=== PATIENT | male | born 1980 | race African-American/Black ===

== ENCOUNTER 2021-07-04 08:00 | Outpatient (CLI) | payer OTHER ==
[~2021-07-04 08:00] MED LIST: TOPROL XL25 MG
== END 2021-07-04 08:30 | disposition home or self-care (01) ==
LOC: PPH VACUNA 08:00
PROVIDERS: ATTEND Emergency Medicine Pediatric Emergency Medicine
DX: Z23 Encounter for immunization (principal)

== ENCOUNTER 2022-05-02 11:11 | Emergency (ER) | payer OTHER ==
[~2022-05-02] VITALS: Ht 170.2 cm; Wt 130.2 kg
[2022-05-02] MEDS ORDERED: METFORMIN HCL500 M4 PO (11:43)
[2022-05-02] MEDS ORDERED: XARELTO15 M1 PO (11:43)
[2022-05-02] MEDS ORDERED: SYNTHROID50 MCG PO (11:44)
[2022-05-02] MEDS ORDERED: HYDROXYCHLOROQ200 MG PO (11:45)
== END 2022-05-02 15:35 | disposition home or self-care (01) ==
LOC: ER 11:11
DX: B34.9 Viral infection, unspecified (principal); Z88.6 Allergy status to analgesic agent; Z20.822 Contact with and (suspected) exposure to COVID-19; E07.9 Disorder of thyroid, unspecified; E11.9 Type 2 diabetes mellitus without complications; Z79.84 Long term (current) use of oral hypoglycemic drugs; I10 Essential (primary) hypertension; M32.9 Systemic lupus erythematosus, unspecified